=== PATIENT | female | born 2005 | race Caucasian/White ===

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

== ENCOUNTER 2023-11-14 19:53 | Inpatient (IN) | payer BC, SELFPAY ==
[2021-08-18 14:50] VITALS: BP 129/82; BMI 37.8
[2023-11-14 19:55] VITALS: BP 150/92; PULSE 81; RESP 18; TEMP 37.1; O2SAT 98; BMI 36.6
--- NOTE | 2023-11-14 20:11 | W.ED.PSYCHS ---
HPI - Psych General: Chief Complaint: Psychiatric Symptoms Stated Complaint: possible seizure Time Seen by Provider: 11/14/23 19:56 Source: patient Mode of arrival: ambulatory Limitations: no limitations History of Present Illness: 18-year-old female with a history of PTSD along with depression patient brought in by friends annalee because she been making suicidal threats. She tells me she feels like she is in a dissociative state and does not feel well she states she has had thoughts of suicide with plans of killing herself by overdosing on pills she has had psych admissions in the past. Denies any worse improved factors. Associated symptoms: Reports depression and suicidal ideation Review of Systems Const: Denies: fever(s), chills, body aches or change in appetite ENMT: Denies: throat pain or dental pain Card: Denies: chest pain Resp: Denies: dyspnea GI: Denies: abdominal pain, nausea, vomiting or diarrhea Musc: Denies: neck pain or back pain Skin/Breast: Denies: rash Neuro: Denies: headache(s) Psych: Reports: depression and suicidal ideation [facility] PFSH: Family History (Updated 08/13/21 @ 15:50 by Mariza Tipton RN) Other CAD (coronary artery disease) Diabetes Hypertension Lung disease Stroke Social History Smoking and tobacco/nicotine status: never used tobacco/nicotine Second hand smoke exposure: Yes Alcohol intake: never Substance/Drug Use: never Adopted: No Highest education level completed: 11th Grade Education level details: currently in 12th grade Pets and animals: Yes Pets & animals: cat(s) and dog(s) Sexually active: Yes Are you practicing safe sex: Yes Do you think of yourself as: Bisexual Current gender identity: Genderqueer- Neither Male or Female Katarina/Mosque: Carter Special katarina needs: No Agree to transfusion: Yes Female Reproductive History: Date of last menstrual period: 11/14/23 Physical Exam Const: COMMON NORMALS: no acute distress, patient oriented x3 and healthy appearing HENMT: COMMON NORMALS: normocephalic and atraumatic HEAD & SCALP: normocephalic and atraumatic Neck/C-Spine: COMMON NORMALS: full ROM and supple Chest: COMMONS NORMALS: normal inspection of the chest Resp: COMMON NORMALS: normal respiratory effort Cardio: COMMON NORMALS: regular rate, regular rhythm and No murmurs present (Cardio) RATE: regular rate RHYTHM: regular rhythm Extremity: COMMON NORMALS: normal to inspection and full ROM Neuro: COMMON NORMALS: patient oriented x3, moves all extremities and no focal motor deficits Psych: COMMON NORMALS: mental status grossly normal, Normal thought process present and cooperative THOUGHT PROCESS: Normal thought process present THOUGHT CONTENT: Yes Suicidality present Skin: COMMON NORMALS: no rashes or lesions noted and no wounds GENERAL SKIN EXAM: no rashes or lesions noted Course Vital Signs: Vital signs: Vital Signs Temperature 98.7 F 11/14/23 19:55 Pulse Rate 81 11/14/23 19:55 Respiratory Rate 18 11/14/23 19:55 Blood Pressure 150/92 11/14/23 19:55 Pulse Oximetry 98 11/14/23 19:55 Oxygen Delivery Me thod Room Air 11/14/23 19:55 MDM - Psych Medical Decision Making Patient presents here with suicidal ideation patient is placed under 96-hour hold and will admit to the psychiatric unit. Medical Records I reviewed the patient's medical records. Lab Data I reviewed the patient's lab results. 11/14/23 20:12 11/14/23 20:12 Laboratory Results WBC 15.76 10^3/uL (4.5-13.0) H 11/14/23 20:12 RBC 4.56 10^6/uL (3.85-5.65) 11/14/23 20:12 Hgb 13.30 g/dL (12.4-14.8) 11/14/23 20:12 Hct 39.1 % (36-47) 11/14/23 20:12 MCV 85.7 fl (85-98) 11/14/23 20:12 MCH 29.2 pg (27-33) 11/14/23 20:12 MCHC 34.0 g/dL (30-55) 11/14/23 20:12 RDW 12.6 % (12.1-15.1) 11/14/23 20:12 Plt Count 411 10^3/cmm (157-399) H 11/14/23 20:12 MPV 9.2 fL (7.4-10.4) 11/14/23 20:12 Neut % (Auto) 72.8 % 11/14/23 20:12 Lymph % (Auto) 18.8 % 11/14/23 20:12 Levy % (Auto) 6.9 % 11/14/23 20:12 Eos % (Auto) 0.3 % 11/14/23 20:12 Baso % (Auto) 0.6 % 11/14/23 20:12 Neut # (Auto) 11.47 10^3/uL (1.8-8.0) H 11/14/23 20:12 Lymph # (Auto) 3.0 10^3/uL (1.5-6.5) 11/14/23 20:12 Levy # (Auto) 1.1 10^3/uL (0.2-0.9) H 11/14/23 20:12 Eos # (Auto) 0.1 10^3/uL (0.0-0.8) 11/14/23 20:12 Baso # (Auto) 0.1 10^3/uL (0.0-0.1) 11/14/23 20:12 Nucleated RBC % (auto) 0 % 11/14/23 20:12 Nucleated RBCs # 0.0 /100WBC 11/14/23 20:12 Sodium 137 mmol/L (136-145) 11/14/23 20:12 Chloride 103 mmol/L (98-107) 11/14/23 20:12 Carbon Dioxide 20 mmol/L (22-29) L 11/14/23 20:12 BUN 8 mg/dL (6-20) 11/14/23 20:12 Creatinine 0.7 mg/dL (0.5-0.9) 11/14/23 20:12 GFR Calculation 106.7 mL/min (90-130) 11/14/23 20:12 Glucose 97 mg/dL (65-115) 11/14/23 20:12 Calculated Osmolality 282 mOsm/kg (285-295) L 11/14/23 20:12 Lactic Acid 1.7 mmol/L (0.5-2.2) 11/14/23 20:12 Calcium 9.2 mg/dL (8.5-10.5) 11/14/23 20:12 Total Bilirubin 0.5 mg/dL (0.15-1.2) 11/14/23 20:12 AST 20 U/L (0-32) 11/14/23 20:12 ALT 16 U/L (0-33) 11/14/23 20:12 Alkaline Phosphatase 70 U/L (35-105) 11/14/23 20:12 Total Protein 8.1 g/dL (6.6-8.7) 11/14/23 20:12 Albumin 4.7 g/dL (3.5-5.2) 11/14/23 20:12 Globulin 3.4 g/dL (1.3-4.6) 11/14/23 20:12 HCG, Qual Negative (Negative) 11/14/23 20:45 Salicylates 0.6 mg/dL (3-10) L 11/14/23 20:12 Urine Opiates Screen Negative ng/mL (Negative) 11/14/23 20:45 Acetaminophen < 5.0 ug/mL (10-30) L 11/14/23 20:12 Ur Barbiturates Screen Negative ng/mL (Negative) 11/14/23 20:45 Ur Phencyclidine Scrn Negative ng/mL (Negative) 11/14/23 20:45 Ur Amphetamines Screen Negative ng/mL (Negative) 11/14/23 20:45 U Benzodiazepines Scrn Negative ng/mL (Negative) 11/14/23 20:45 Urine Cocaine Screen Negative ng/mL (Negative) 11/14/23 20:45 U Marijuana (THC) Screen Positive ng/mL (Negative) H 11/14/23 20:45 Ethyl Alcohol < 10 mg/dL (0-10) 11/14/23 20:12 No radiology studies performed this visit Discharge Plan Discharge Patient Disposition: Admitted As Inpatient Clinical Impression: Suicidal ideation Condition: Stable Prescriptions: No Action cholecalciferol (vitamin D3) 25 mcg (1,000 unit) tablet,chewable 25 mcg PO DAILY multivitamin Tablet 1 tab PO QAM bupropion HCl 150 mg tablet extended release 24 hr 150 mg PO QAM Qty: 30 2RF hydroxyzine HCl 50 mg tablet 50 mg PO .HS PRN (Reason: anxiety or sleep) Qty: 30 2RF lithium carbonate 450 mg tablet extended release 450 mg PO BID Qty: 60 2RF prazosin 5 mg capsule 5 mg PO .HS Qty: 30 2RF sertraline 50 mg tablet 50 mg PO DAILY Qty: 30 2RF trazodone 50 mg tablet 100 mg PO .HS PRN (Reason: insomnia) Qty: 60 2RF Rx Instructions: 1-2 tabs at night as needed for sleep. Depo-Provera Contraceptive Coding Level of Care Code ED Loom Operator Apprentice for Heike Mckinley
[2023-11-14] MEDS: LORazepam 2 mg/mL INJ 10 mL MDV IM (20:20)
[2023-11-14 20:21] LABS: Basophils # 0.1 10^3/uL (0.0-0.1); Basophils % 0.6 %; Eosinophils # 0.1 10^3/uL (0.0-0.8); Eosinophils % 0.3 %; Hematocrit 39.1 % (36-47); Lymphocytes % 18.8 %; Mean Corpuscular Hemoglobin 29.2 pg (27-33); Mean Corpuscular Volume 85.7 fl (85-98); Mean Platelet Volume 9.2 fL (7.4-10.4); Monocytes # 1.1 10^3/uL (0.2-0.9); Monocytes % 6.9 %; Neutrophils # 11.47 10^3/uL (1.8-8.0); Neutrophils % 72.8 %; Nucleated Red Blood Cells % 0 %; Platelet Count 411 10^3/cmm (157-399); Red Blood Count 4.56 10^6/uL (3.85-5.65); Red Cell Distribution Width 12.6 % (12.1-15.1); White Blood Count 15.76 10^3/uL (4.5-13.0)
[2023-11-14 20:48] LABS: Lactic Sepsis W/Reflex 1.7 mmol/L (0.5-2.2)
[2023-11-14 20:49] LABS: Alanine Aminotransferase 16 U/L (0-33); Albumin Level 4.7 g/dL (3.5-5.2); Alkaline Phosphatase 70 U/L (35-105); Aspartate Amino Transferase 20 U/L (0-32); Salicylate 0.6 mg/dL (3-10)
--- NOTE | 2023-11-14 21:00 | PC.NURSE ---
96 Pt served with copy of 96 Hour Hold by this RN and security. Pt A&O, asking questions regarding the phone in [facility] and how can she get numbers out of her cell phone to make calls when she gets to [facility].
[2023-11-14 21:04] LABS: Amphetamines Screen Urine Negative (Negative); Barbiturates Screen Urine Negative (Negative); Benzodiazepines Screen Urine Negative (Negative); Cocaine Screen Urine Negative (Negative); Opiate Screen Urine Negative (Negative); PCP Screen Urine Negative (Negative); THC Screen Urine Positive (Negative)
[2023-11-14 21:14] LABS: Acetaminophen < 5.0 ug/mL (10-30)
[2023-11-14 21:32] LABS: Alcohol Level < 10 mg/dL (0-10); Blood Urea Nitrogen 8 mg/dL (6-20); Calcium 9.2 mg/dL (8.5-10.5); Carbon Dioxide 20 mmol/L (22-29); Creatinine Clr Calc Pharmacy 134.2741; Globulin 3.4 g/dL (1.3-4.6); Glomerular Filtration Rate 106.7 mL/min (90-130); Glucose 97 mg/dL (65-115); Total Bilirubin 0.5 mg/dL (0.15-1.2); Total Protein 8.1 g/dL (6.6-8.7)
[2023-11-14 21:32] LABS: HCG Qualitative Urine. Negative (Negative)
[2023-11-14 23:01] LABS: Anion Gap 19.4 (5-19); Chloride 104 mmol/L (98-107); Osmolality Calculated 288 mOsm/kg (285-295); Potassium 3.4 mmol/L (3.5-5.1); Sodium 140 mmol/L (136-145)
[2023-11-14 23:09] LABS: Add Urine Culture? No; Amorphous Sediment Urine 3+ /hpf; Bacteria Urine 1+ /hpf; Bilirubin Urine Neg (Negative); Blood Urine 2+ (Negative); Glucose Urine UA Norm (Normal); Ketones Urine 2+ (Negative); Leukocyte Esterase Urine Negative (Negative); Nitrate Urine Negative (Negative); Protein Urine 1+ (Negative); RBC Urine 0-4 /hpf (0-2); Squamous Epithelial Cell Urine 0-4 /hpf (0-5); Urine Appearance Cloudy (CLEAR); Urine Color Yellow (Yellow); Urobilinogen Urine Neg (Negative); WBC Urine 0-4 /hpf (0-5); pH Urine 5 (5-7)
[2023-11-14 23:18] VITALS: BP 141/87; PULSE 118; RESP 18; TEMP 36.3; O2SAT 98
[2023-11-14 23:41] LABS: Prolactin 18.42 ng/mL (4.8-23.3)
[2023-11-14] MEDS: trazodone 50 mg Tablet PO (23:59)
--- NOTE | 2023-11-15 00:34 | PC.NURSE ---
Admission Note Pt arrived to NPU by wheelchair at 2319. Pt stated that she is here because a friend of hers recently and she has been feeling suicidal. She states that she hasn't been eating or sleeping recently and she thinks that's why she passed out earlier today. Pt told this nurse that she is currently having thoughts of harming herself and has a plan to strangle herself with her bed sheets. Pt also stated that she has been having hallucinations and they are telling her that she is worthless and that she should drown herself. Pt denies HI upon admission. Pt was dressed into NPU scrubs. Phycisian was contacted for 1:1 orders due to pts access to SI plan. Verbal orders were given for a one-to-one. Pt is now observed resting in bed quietly with eyes closed. Sitter at bedside. Behavioral monitoring continues.
[2023-11-15 06:00] VITALS: BP 131/82; PULSE 90; RESP 16; O2SAT 99
[2023-11-15] MEDS: blistex lip oint 7 gm Tube 1 APPLIC TOPICAL (08:32)
[2023-11-15] MEDS: docusate sodium 100 mg Capsule PO (09:20)
[2023-11-15] MEDS: hyDROXYzine 25 mg Capsule 50 MG PO (09:20)
[2023-11-15] MEDS: flu vacc pf 2023-24 (6 mos+) 60 MCG IM (09:20)
--- NOTE | 2023-11-15 09:46 | PC.NURSE ---
pATIENT REPORTED TO THIS NURSE THAT SHE HAS A REVOLVING DOOR OF DIFFERENT METHODS I WOULD USE TO KILL MYSELF. I THINK ABOUT THEM A LOT. I DO WANT TO LIVE BUT TIRED OF FEELING MENTAL PAIN ALL OF THE TIME. PATIENT RATES DEPRESSION 05/08 AND ANXIETY 03/07. PATIENT STATES THAT HER DEPRESSION AND ANXIETY COMES AND GOES. PATIENT ENDORSES AVH. PATIENT SEES SHADOWS WALKING BY AND SOMETIMES IT SOUNDS LIKE SOMONE IS WHISPERING BEHIND HER EAR. PATIENT STATES THAT HER EX-BOYFRIEND RECENTLY COMMITED SUICIDE AND THIS IS HAVING A NEGATIVE EFFECT ON HER MENTAL HEALTH.
[2023-11-15 14:00] VITALS: BP 115/67; PULSE 58; RESP 16; TEMP 36.6; O2SAT 97
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
[2023-11-15 19:52] VITALS: BP 114/78; PULSE 87; RESP 16; TEMP 36.9; O2SAT 94
[2023-11-15] MEDS: quetiapine 25 mg Tablet 50 MG PO (20:04)
[2023-11-16 06:00] VITALS: BP 131/74; PULSE 63; RESP 15; TEMP 36.6; O2SAT 98
[2023-11-16] MEDS: sertraline 50 mg Tablet 25 MG PO (08:22)
--- NOTE | 2023-11-16 09:25 | PC.NURSE ---
IN BED RESTING AROUSES TO VOICE. PT ONE ON ONE OBSERVATION DUE TO TELLING ADMITING NURSE SHE WAS SUICIDAL WITH A PLAN. PT CURRENTLY DENIES SI/HI AND AVH AT THIS TIME. PT IS NOTED TO HAVE A FLAT AFFECT AND LIMITED EYE CONTACT. PTS ANSWERS ARE DELAYED AT TIMES. RATES ANXIETY 6/10 BUT STATES SHE DOES NOT NEED ANY PRNS RIGHT NOW. RATES DEPRESSION 7/10. ANTIDEPRESSANT WAS STARTED THIS AM AT 25 MG, PT COMPLIANT WITH MEDICATIONS. ALL QUESTIONS WERE ANSWERED AND SUPPORT WAS VOICED.
[2023-11-16] MEDS: OLANZapine 5 mg ODT PO (13:39)
[2023-11-16 14:00] VITALS: BP 122/83; PULSE 89; RESP 20; TEMP 36.6; O2SAT 96
--- NOTE | 2023-11-16 15:33 | P.NPUPN_ITS ---
Subjective NPU 2 Subjective: 18-year-old white female with borderline personality disorder, major depressive disorder and PTSD admitted with active suicidal ideation with a plan to hang herself along with a history of chronic self-injurious behavior. Patient had reported having less frequent thoughts of hanging herself but still reported that she felt uncertain. She had reported having frequent thoughts of cutting herself. She had reported no previous history of any intensive skills training regarding chronic self-injurious behavior with no history of reported psychotherapy particularly focusing on DBT skills. Patient had reported continued low energy. She had reported some feelings of abandonment and reported having limited supports in [place]. She had reported that her home situation at [place] had been volatile and had led her to isolate herself more. She reported continued visual images about seeing her friend hanged in the [place]. She had reported difficulties with sleep continuity disruption and reported having frequent nightmares.She had reported improved sleep but still reported feeling tired and unmotivated when awakening. Mental Status Exam 2 MSE Comments: Patient is an overweight white female with purple hair with fair eye contact and normal gait with no evidence of any abnormal involuntary motor movements tics or tremors. There was clear superficial scars on her left forearm. Her speech was normal in regards to rate rhythm and prosody. Her mood was described as okay. Her affect was restricted in range and mood congruent. She had endorsed active suicidal ideation with a plan to hang herself with her blankets although reporting less frequent thoughts. She denied any homicidal ideation. She did not appear to be responding internal stimuli. There was no clear evidence of delusional thinking. She remained hypervigilant. Her attention span appeared fair. Her recent and remote memory were grossly intact. She was alert and oriented to person place time and situation. Her insight is poor. Her judgment is poor. Her impulse control appeared poor. Vitals/I&O/Wt Last Vital Signs Temp 98 F 11/16/23 14:00 Pulse 89 11/16/23 14:00 Resp 20 H 11/16/23 14:00 BP 122/83 11/16/23 14:00 Pulse Ox 96 11/16/23 14:00 O2 Del Method Room Air 11/16/23 06:00 Weight last 48 hrs Weight 90.718 kg Data NPU 11/14/23 20:12 11/14/23 20:12 A&P Assessment and plan (1) Major depressive disorder, recurrent severe without psychotic features: (2) Post-traumatic stress disorder, chronic: (3) Suicidal ideation: (4) Borderline personality disorder: Plan 18-year-old white female with a history of borderline personality disorder, PTSD and major depressive disorder endorsing suicidal ideation with a plan after of ex boyfriend. The patient had reported desire to receive treatment at this time with no prior history of intensive psychotherapy but previous trials on antidepressants. ?1. Encourage individual, group and milieu therapy. ?2.Recommend sober living treatment at the highest level of care to which the patient is willing to commit. 3.Continue 1-1 with active suicidal ideation. 4. Continue zoloft 25mg daily and increase seroquel 100mg at night to target PTSD related symptoms. Involuntary Hold Information 2 96 Hour Hold: 96 Hour Involuntary Admission: Yes 96 Hour Hold Ending Date: 11/18/23 96 Hour Hold Ending Time: 20:15 Attestations NPU 2 Medical Necessity Statement*: Inpatient hospitalization is medically necessary and deemed to ?be ?the clinically appropriate intervention ?at this time.? We will monitor/initiate medications and make changes as indicated.? The patient?s likely length of stay 5-7 days. Coding Level of Care Code Acute Code for [facility] Fwd Diagnoses Major depressive disorder, recurrent severe without psychotic features F33.2 Post-traumatic stress disorder, chronic F43.12 Suicidal ideation R45.851 Borderline personality disorder F60.3
--- NOTE | 2023-11-16 18:01 | PC.NURSE ---
PT RECEIVED PRN ZYDIS 5 MG THIS AFTERNOON FOR COMPLAINTS OF INCREASED ANXIETY. PT WAS OBSERVED TO BE SHAKING, CRYING AND UPSET ON THE PHONE. MEDICATION IS DEEMED EFFECTIVE, PT HAD NO FURTHER COMPLAINTS OF ANXIETY THIS SHIFT. PT HAS BEEN RESTING IN ROOM WITH NO DISTRESS NOTED. SITTER REMAINS AT BEDSIDE. SUPPORT VOICED.
[2023-11-16] MEDS: quetiapine 100 mg Tablet PO (19:53)
[2023-11-16 20:02] VITALS: BP 118/80; PULSE 81; RESP 16; TEMP 36.7; O2SAT 97
--- NOTE | 2023-11-16 20:24 | PC.NURSE ---
Pt sitting in dayroom w/ sitter. Pt denies SI at the moment but agrees to tell staff if it changes. Pt also denies HI/AVH but endorses anxiety/depression. one to one sitter continued / no distress noted / pt current needs are met at this time.
[2023-11-16] MEDS: trazodone 50 mg Tablet PO (21:44)
--- NOTE | 2023-11-16 22:04 | PC.NURSE ---
Pt given PRN 50mg Trazodone for sleep. No distress noted & current needs are met.
[2023-11-17 06:00] VITALS: BP 108/66; PULSE 64; RESP 15; TEMP 36.7; O2SAT 98
[2023-11-17] MEDS: sertraline 50 mg Tablet 25 MG PO (09:02)
--- NOTE | 2023-11-17 13:52 | W.PM.NPUPNS ---
Subjective NPU Subjective: 18-year-old white female with borderline personality disorder, major depressive disorder and PTSD admitted with active suicidal ideation with a plan to hang herself along with a history of chronic self-injurious behavior. Patient had endorsed a history of dissociative episodes. She had reported that she had been having problems with concentration. She had continued to report feeling depressed but stated that she continued to struggle with having recurring thoughts and images of her now friend. Patient had reported excessive worry regarding her friends who had witnessed the hanging or had been present to some find the body of her friend. Patient had isolated herself on the milieu but stated that she was able to attend groups. She had expressed interest in receiving DBT services as patient had been present with some brief information regarding its methods for treating chronic self-injurious behavior. He did continue to report nightmares and reported struggles with sleep although she stated that she had not remember having a nightmare last night. She had reported chronic problems with controlling her urge to cut. Mental Status Exam MSE Comments: Patient is an overweight white female with purple hair with fair eye contact and normal gait with no evidence of any abnormal involuntary motor movements tics or tremors. She remained in significant distress. There was clear superficial scars on her left forearm. Her speech was normal in regards to rate rhythm and prosody. Her mood was described as depressed. Her affect was flat. She had endorsed fleeting suicidal thoughts with no active plan to hang self. She denied any homicidal ideation. She did not appear to be responding internal stimuli. There was no clear evidence of delusional thinking. She remained hypervigilant. Her attention span appeared fair. Her recent and remote memory were grossly intact. She was alert and oriented to person place time and situation. Her insight is poor. Her judgment is poor. Her impulse control appeared poor. Vitals/I&O/Wt Last Vital Signs Temp 98.0 F 11/17/23 06:00 Pulse 64 11/17/23 06:00 Resp 15 11/17/23 06:00 BP 108/66 11/17/23 06:00 Pulse Ox 98 11/17/23 06:00 O2 Del Method Room Air 11/17/23 06:00 Data NPU 11/14/23 20:12 11/14/23 20:12 A&P Assessment and plan (1) Major depressive disorder, recurrent severe without psychotic features: (2) Post-traumatic stress disorder, chronic: (3) Suicidal ideation: (4) Borderline personality disorder: Plan 18-year-old white female with a history of borderline personality disorder, PTSD and major depressive disorder endorsing suicidal ideation with a plan after of ex boyfriend. The patient had reported desire to receive treatment at this time with no prior history of intensive psychotherapy but previous trials on antidepressants. ?1. Encourage individual, group and milieu therapy. ?2.Recommend sober living treatment at the highest level of care to which the patient is willing to commit. 3. Remove 1-[address] patient on TO-15. 4. Increase zoloft to 50mg daily to target depression and increase seroquel 150mg at night to target PTSD related symptoms. 5. Referral for DBT therapy. Involuntary Hold Information 96 Hour Hold: 96 Hour Involuntary Admission: Yes 96 Hour Hold Ending Date: 11/18/23 96 Hour Hold Ending Time: 20:15 Attestations NPU Medical Necessity Statement*: Inpatient hospitalization is medically necessary and deemed to ?be ?the clinically appropriate intervention ?at this time.? We will monitor/initiate medications and make changes as indicated.? The patient?s likely length of stay 5-7 days. Coding Level of Care Code Acute Code for [facility] Fwd Diagnoses Major depressive disorder, recurrent severe without psychotic features F33.2 Post-traumatic stress disorder, chronic F43.12 Suicidal ideation R45.851 Borderline personality disorder F60.3
[2023-11-17 14:00] VITALS: BP 131/89; PULSE 76; RESP 16; TEMP 36.6; O2SAT 99
[2023-11-17 19:58] VITALS: BP 113/79; PULSE 72; RESP 17; TEMP 36.7; O2SAT 98
[2023-11-17] MEDS: quetiapine 100 mg Tablet 150 MG PO (20:03)
[2023-11-17] MEDS: hyDROXYzine 25 mg Capsule 50 MG PO (20:03)
--- NOTE | 2023-11-17 20:56 | PC.NURSE ---
Pt currently denies SI/HI/AVH but endorses anxiety and depression. Pt stated Im doing okay just going through an emotional rollercoaster . Pt given PRN Vistaril for anxiety. All current pt needs are met & no distress noted.
[2023-11-18 06:00] VITALS: BP 103/63; PULSE 74; RESP 15; TEMP 36.5; O2SAT 96
[2023-11-18] MEDS: sertraline 50 mg Tablet PO (08:07)
--- NOTE | 2023-11-18 13:09 | P.NPUPN_ITS ---
Subjective NPU 2 Subjective: Patient presented today reporting that she was feeling okay. She reported identifying some positive thoughts to focus upon. She reports that her grief surrounding her ex-boyfriend appears on the surface because it is like she is losing him all over again and she still really cared about him. She reports that her plan is to stay in the area and stay with a friend in [place]. We discussed the medications and she reports they are currently helping her feel better she believes and she denied any side effects from the medication. We discussed continuing to monitor and titrate the medication as indicated. Mental Status Exam 2 MSE Comments: Patient is an obese white female with purple hair in hospital scrubs with adequate grooming and eye contact. No abnormal movements except for mild psychomotor retardation. Cooperative with exam in mild to moderate distress. Speech was decreased rate and volume. There was clear superficial scars on her left forearm. Her mood was described as depressed, but improving. Her affect was congruent and flat. She denied current suicidal thoughts with no active plan to hang self. She denied any homicidal ideation. She did not appear to be responding internal stimuli. There was no clear evidence of delusional thinking. She remained hypervigilant. Her attention span appeared fair. Her recent and remote memory were grossly intact. She was alert and oriented to person place time and situation. Her insight and judgment appeared limited. Her impulse control appeared poor. Vitals/I&O/Wt Last Vital Signs Temp 97.7 F 11/18/23 06:00 Pulse 74 11/18/23 06:00 Resp 15 11/18/23 06:00 BP 103/63 11/18/23 06:00 Pulse Ox 96 11/18/23 06:00 O2 Del Method Room Air 11/18/23 06:00 Data NPU 11/14/23 20:12 11/14/23 20:12 A&P Assessment and plan (1) Major depressive disorder, recurrent severe without psychotic features: (2) Post-traumatic stress disorder, chronic: (3) Suicidal ideation: (4) Borderline personality disorder: Plan 18-year-old white female with a history of borderline personality disorder, PTSD and major depressive disorder endorsing suicidal ideation with a plan after of ex boyfriend. The patient had reported desire to receive treatment at this time with no prior history of intensive psychotherapy but previous trials on antidepressants. ?1. Encourage individual, group and milieu therapy. ?2.Recommend sober living treatment at the highest level of care to which the patient is willing to commit. 3. Remove 1-[address] patient on TO-15. 4. Increase zoloft to 50mg daily to target depression and increase seroquel 150mg at night to target PTSD related symptoms. 5. Referral for DBT therapy. 6. Filed 21-day paperwork today but unclear whether will need to follow through with hearing if appropriate improvement seen. Involuntary Hold Information 2 96 Hour Hold: 96 Hour Involuntary Admission: Yes 96 Hour Hold Ending Date: 11/18/23 96 Hour Hold Ending Time: 20:15 Attestations NPU 2 Medical Necessity Statement*: Inpatient hospitalization is medically necessary and deemed to ?be ?the clinically appropriate intervention ?at this time.? We will monitor/initiate medications and make changes as indicated.? The patient?s likely length of stay 3-6 days. Coding Level of Care Code Acute Code for [facility] Fwd Diagnoses Major depressive disorder, recurrent severe without psychotic features F33.2 Post-traumatic stress disorder, chronic F43.12 Suicidal ideation R45.851 Borderline personality disorder F60.3
[2023-11-18 14:00] VITALS: BP 103/71; PULSE 73; RESP 16; TEMP 36.7; O2SAT 97
--- NOTE | 2023-11-18 19:50 | PC.NURSE ---
Pt currently denies SI/HI/AVH on assessment. Pt states she had a better day today and had no requests or questions at this time. All pt current needs are met & no distress noted.
[2023-11-18 20:05] VITALS: BP 99/65; PULSE 92; RESP 17; TEMP 36.8; O2SAT 97
[2023-11-18] MEDS: hyDROXYzine 25 mg Capsule 50 MG PO (20:13)
[2023-11-18] MEDS: quetiapine 100 mg Tablet 150 MG PO (20:13)
--- NOTE | 2023-11-18 20:15 | PC.NURSE ---
Pt came up to nurses station w/co anxiety. PRN vistaril for anxiety was given to pt. All current needs met at this time.
[2023-11-19 06:00] VITALS: BP 120/84; PULSE 104; RESP 16; O2SAT 99
[2023-11-19] MEDS: sertraline 50 mg Tablet PO (08:34)
--- NOTE | 2023-11-19 11:32 | W.PM.NPUPNS ---
Subjective NPU Subjective: Patient presented today reporting that she is starting to feel more optimistic about her situation. She reports that the medications are proving to be helpful and that she feels her symptoms starting to chevy. She continued to endorse the same plan for discharge and we continue to discuss the possibility of discharge by Tuesday. Mental Status Exam MSE Comments: Patient is an obese white female with purple hair in hospital scrubs with adequate grooming and eye contact. No abnormal movements except for mild psychomotor retardation. Cooperative with exam in mild to moderate distress. Speech was decreased rate and volume. There was clear superficial scars on her left forearm. Her mood was described as a little better. Her affect was congruent and less flat. She denied current suicidal thoughts with no active plan to hang self. She denied any homicidal ideation. She did not appear to be responding internal stimuli. There was no clear evidence of delusional thinking. And she was appearing less guarded. Her attention span appeared fair. Her recent and remote memory were grossly intact. She was alert and oriented to person place time and situation. Her insight and judgment appeared limited. Her impulse control appeared poor. Vitals/I&O/Wt Last Vital Signs Temp 98.3 F 11/18/23 20:05 Pulse 104 H 11/19/23 06:00 Resp 16 11/19/23 06:00 BP 120/84 11/19/23 06:00 Pulse Ox 99 11/19/23 06:00 O2 Del Method Room Air 11/18/23 20:05 Data NPU 11/14/23 20:12 11/14/23 20:12 A&P Assessment and plan (1) Major depressive disorder, recurrent severe without psychotic features: (2) Post-traumatic stress disorder, chronic: (3) Suicidal ideation: (4) Borderline personality disorder: Plan 18-year-old white female with a history of borderline personality disorder, PTSD and major depressive disorder endorsing suicidal ideation with a plan after of ex boyfriend. The patient had reported desire to receive treatment at this time with no prior history of intensive psychotherapy but previous trials on antidepressants. ?1. Encourage individual, group and milieu therapy. ?2.Recommend sober living treatment at the highest level of care to which the patient is willing to commit. 3. Remove 1-[address] patient on TO-15. 4. Increase zoloft to 50mg daily to target depression and increase seroquel 150mg at night to target PTSD related symptoms. 5. Referral for DBT therapy. 6. Filed 21-day paperwork today but unclear whether will need to follow through with hearing if appropriate improvement seen. Involuntary Hold Information 96 Hour Hold: 96 Hour Involuntary Admission: Yes 96 Hour Hold Ending Date: 11/18/23 96 Hour Hold Ending Time: 20:15 Attestations NPU Medical Necessity Statement*: Inpatient hospitalization is medically necessary and deemed to ?be ?the clinically appropriate intervention ?at this time.? We will monitor/initiate medications and make changes as indicated.? The patient?s likely length of stay 2-4 days. Coding Level of Care Code Acute Code for [facility] Fwd Diagnoses Major depressive disorder, recurrent severe without psychotic features F33.2 Post-traumatic stress disorder, chronic F43.12 Suicidal ideation R45.851 Borderline personality disorder F60.3
[2023-11-19 14:00] VITALS: BP 109/72; PULSE 75; RESP 16; TEMP 36.6; O2SAT 95
[2023-11-19 19:44] VITALS: BP 115/82; PULSE 103; RESP 18; TEMP 36.6; O2SAT 97
[2023-11-19] MEDS: quetiapine 100 mg Tablet 150 MG PO (20:16)
[2023-11-19] MEDS: hyDROXYzine 25 mg Capsule 50 MG PO (20:16)
--- NOTE | 2023-11-19 21:35 | PC.NURSE ---
on assessment pt endorsed anxiety / depression & SI. Pt was asked if she had a plan which she replied not at the moment . Pt did agree that if she developed a plan she would inform staff. Pt was given PRN Vistaril for anxiety and is currently laying in bed. Will continue to watch pt closely & warehouse inventory clerk notified.
[2023-11-20 06:00] VITALS: BP 110/70; PULSE 78; RESP 16; TEMP 36.5; O2SAT 98
[2023-11-20] MEDS: sertraline 50 mg Tablet PO (08:33)
--- NOTE | 2023-11-20 11:34 | P.NPUPN_ITS ---
Subjective NPU 2 Subjective: Patient presented today reporting that she is feeling better. Staff reported less isolation that she was seen outside of her room for prolonged periods of time by this underwriter mortgage loan for the first time in her stay. She reports the medications have been effective and she denied any side effects to the medication. We discussed the likely discharge in the next 48 hours. Mental Status Exam 2 MSE Comments: Patient is an obese white female with purple hair in hospital scrubs with adequate grooming and eye contact. No abnormal movements except for mild psychomotor retardation. Cooperative with exam in mild to moderate distress. Speech was decreased rate and volume. There was clear superficial scars on her left forearm. Her mood was described as a little better. Her affect was congruent and less flat. She denied current suicidal thoughts with no active plan to hang self. She denied any homicidal ideation. She did not appear to be responding internal stimuli. There was no clear evidence of delusional thinking. And she was appearing less guarded. Her attention span appeared fair. Her recent and remote memory were grossly intact. She was alert and oriented to person place time and situation. Her insight and judgment appeared limited. Her impulse control appeared poor. Vitals/I&O/Wt Last Vital Signs Temp 97.7 F 11/20/23 06:00 Pulse 78 11/20/23 06:00 Resp 16 11/20/23 06:00 BP 110/70 11/20/23 06:00 Pulse Ox 98 11/20/23 06:00 O2 Del Method Room Air 11/19/23 14:00 Weight last 48 hrs Weight 86.001 kg Data NPU 11/14/23 20:12 11/14/23 20:12 A&P Assessment and plan (1) Major depressive disorder, recurrent severe without psychotic features: (2) Post-traumatic stress disorder, chronic: (3) Suicidal ideation: (4) Borderline personality disorder: Plan 18-year-old white female with a history of borderline personality disorder, PTSD and major depressive disorder endorsing suicidal ideation with a plan after of ex boyfriend. The patient had reported desire to receive treatment at this time with no prior history of intensive psychotherapy but previous trials on antidepressants. ?1. Encourage individual, group and milieu therapy. ?2.Recommend sober living treatment at the highest level of care to which the patient is willing to commit. 3. Remove 1-[address] patient on TO-15. 4. Increase zoloft to 50mg daily to target depression and increase seroquel 150mg at night to target PTSD related symptoms. 5. Referral for DBT therapy. 6. Filed 21-day paperwork today but unclear whether will need to follow through with hearing if appropriate improvement seen. Involuntary Hold Information 2 96 Hour Hold: 96 Hour Involuntary Admission: Yes 96 Hour Hold Ending Date: 11/18/23 96 Hour Hold Ending Time: 20:15 Attestations NPU 2 Medical Necessity Statement*: Inpatient hospitalization is medically necessary and deemed to ?be ?the clinically appropriate intervention ?at this time.? We will monitor/initiate medications and make changes as indicated.? The patient?s likely length of stay 1-3 days. Coding Level of Care Code Acute Code for g Fwd Diagnoses Major depressive disorder, recurrent severe without psychotic features F33.2 Post-traumatic stress disorder, chronic F43.12 Suicidal ideation R45.851 Borderline personality disorder F60.3
[2023-11-20 14:00] VITALS: BP 125/84; PULSE 90; RESP 16; TEMP 36.8; O2SAT 97
[2023-11-20 20:10] VITALS: BP 116/84; PULSE 90; RESP 18; TEMP 36.9; O2SAT 96
[2023-11-20] MEDS: quetiapine 100 mg Tablet 150 MG PO (20:10)
[2023-11-21 06:00] VITALS: BP 114/81; PULSE 75; RESP 18; TEMP 36.6; O2SAT 99
[2023-11-21] MEDS: sertraline 50 mg Tablet PO ×2 (08:31→13:20)
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
[2023-11-21 13:16] VITALS: BP 114/81; PULSE 75; RESP 18; TEMP 36.6; O2SAT 99
== END 2023-11-21 15:36 | disposition home or self-care (01) | DRG 885 ==
LOC: ER 21:46 → NP 22:38
PROVIDERS: Internal Medicine; Admitting Provider Psychiatry & Neurology Psychiatry; Emergency Provider Emergency Medicine; Visit Provider Psychiatry & Neurology Psychiatry
DX: F33.2 Major depressive disorder, recurrent severe without psychotic features (principal); R45.851 Suicidal ideations; F43.12 Post-traumatic stress disorder, chronic; F60.3 Borderline personality disorder; Z63.4 Disappearance and death of family member; Z91.52 Personal history of nonsuicidal self-harm; Z91.51 Personal history of suicidal behavior; Z62.810 Personal history of physical and sexual abuse in childhood
CPT/HCPCS: 36415; 80053; 80306; 80307; 81001; 81025; 83605; 84146; 85025; 90471; 90686; 96372; 97150; 97165; 99285; J2060

== ENCOUNTER 2023-12-22 11:22 | Inpatient (IN) | payer BC, SELFPAY ==
[2023-11-25 09:59] VITALS: BP 129/82; BMI 37.8
[2023-12-22 11:34] VITALS: BP 114/77; PULSE 77; TEMP 37.2; O2SAT 97; BMI 35.8
--- NOTE | 2023-12-22 11:41 | ECG_ITS ---
[facility] Test Date: 2023-12-22 Pat Name: Day Suárez Department: Room: Gender: Female Manager Retail Sales: : 2005 Requested By: Nancy Cotter Order Number: [id number] Donny MD: Otilio Aldridge M.D. Measurements Intervals [place] Rate: 79 P: 45 WI: 159 QRS: 41 QRSD: 77 T: 14 QT: 336 QTc: 385 Interpretive Statements SINUS RHYTHM NONSPECIFIC T-WAVE ABNORMALITY Compared to ECG 05/16/2021 19:58:45 T-wave abnormality now present Electronically Signed On 12-22-2023 15:09:39 CDT by Otilio Aldridge M.D. [email or web address]
--- NOTE | 2023-12-22 12:00 | ED.C_ITS ---
HPI - Psych 2 General: Chief Complaint: Psychiatric Symptoms Stated Complaint: MHE Time Seen by Provider: 12/22/23 11:39 History of Present Illness: 18-year-old female with a history of dep ression who presents to the emergency room with worsening depression symptoms and suicidal thoughts. She says she had not had her meds in 2 days because she was staying with a friend who had a crisis. She says she has been thinking about either taking pills or hanging herself. She has not harmed herself thus far. She does have history of inpatient admissions for psychiatric problems and depression in the past. She says she is willing to be admitted. Review of Systems 2 Narrative: Constitutional symptoms: Negative except as documented in HPI. Skin symptoms: Negative except as documented in HPI. Eye symptoms: Negative except as documented in HPI. ENMT symptoms: Negative except as documented in HPI. Respiratory symptoms: Negative except as documented in HPI. Cardiovascular symptoms: Negative except as documented in HPI. Gastrointestinal symptoms: Negative except as documented in HPI. Genitourinary symptoms: Negative except as documented in HPI. Musculoskeletal symptoms: Negative except as documented in HPI. Neurologic symptoms: Negative except as documented in HPI. Psychiatric symptoms: Negative except as documented in HPI. Endocrine symptoms: Negative except as documented in HPI. PFSH ED 2 PFSH: Family History (Updated 08/13/21 @ 15:50 by Mariza Tipton RN) Other CAD (coronary artery disease) Diabetes Hypertension Lung disease Stroke Social History Smoking and tobacco/nicotine status: never used tobacco/nicotine Second hand smoke exposure: Yes Alcohol intake: never Substance/Drug Use: never Adopted: No Highest education level completed: 11th Grade Education level details: currently in 12th grade Pets and animals: Yes Pets & animals: cat(s) and dog(s) Sexually active: Yes Are you practicing safe sex: Yes Do you think of yourself as: Bisexual Current gender identity: Genderqueer- Neither Male or Female Katarina/Mormonism: Emma Special katarina needs: No Agree to transfusion: Yes Physical Exam 2 Narrative: EXAM NARRATIVE: General: Alert, no acute distress. Skin: Warm, dry. Head: Normocephalic, atraumatic. Neck: Supple, trachea midline. Eye: Extraocular movements are intact. Ears, nose, mouth and throat: mucosa moist. Cardiovascular: Regular, Normal peripheral perfusion. Respiratory: Lungs are clear to auscultation, respirations are non-labored, breath sounds are equal, Symmetrical chest wall expansion. Gastrointestinal: Soft, Nontender, Non distended, Normal bowel sounds. Musculoskeletal: Normal ROM, no deformity. Neurological: Alert and oriented, No focal neurological deficit observed. Psychiatric: Cooperative, patient appears depressed, tearful at times, she does express suicidal ideation Course 2 Vital Signs: Vital signs: Vital Signs Temperature 98.9 F 12/22/23 11:34 Pulse Rate 77 12/22/23 11:34 Blood Pressure 114/77 12/22/23 11:34 Pulse Oximetry 97 12/22/23 11:34 Oxygen Delivery Me thod Room Air 12/22/23 11:34 MDM - Psych Medical Decision Making Patient with reported depression and suicidal ideation. concerns for infection, alcohol intoxication, cardiac issues or other medical problems prior to psychiatric admission. - Workup: labwork, ekg ordered to evaluate the pathologies and to clear the patient medically prior to psychiatric admission EKG: Time 1210 rate 79 normal sinus rhythm, No ST-T changes, no ectopy, normal WI & QRS intervals, This was reviewed and interpreted by myself the ER physician At 1215 Lab Data 12/22/23 12:45 12/22/23 12:45 Laboratory Results WBC 10.82 10^3/uL (4.5-13.0) 12/22/23 12:45 RBC 4.89 10^6/uL (3.85-5.65) 12/22/23 12:45 Hgb 14.30 g/dL (12.4-14.8) 12/22/23 12:45 Hct 43.9 % (36-47) 12/22/23 12:45 MCV 89.8 fl (85-98) 12/22/23 12:45 MCH 29.2 pg (27-33) 12/22/23 12:45 MCHC 32.6 g/dL (30-55) 12/22/23 12:45 RDW 12.8 % (12.1-15.1) 12/22/23 12:45 Plt Count 364 10^3/cmm (157-399) 12/22/23 12:45 MPV 8.9 fL (7.4-10.4) 12/22/23 12:45 Neut % (Auto) 68.1 % 12/22/23 12:45 Lymph % (Auto) 21.4 % 12/22/23 12:45 [place] % (Auto) 7.6 % 12/22/23 12:45 Eos % (Auto) 1.7 % 12/22/23 12:45 Baso % (Auto) 0.6 % 12/22/23 12:45 Neut # (Auto) 7.38 10^3/uL (1.8-8.0) 12/22/23 12:45 Lymph # (Auto) 2.3 10^3/uL (1.5-6.5) 12/22/23 12:45 [place] # (Auto) 0.8 10^3/uL (0.2-0.9) 12/22/23 12:45 Eos # (Auto) 0.2 10^3/uL (0.0-0.8) 12/22/23 12:45 Baso # (Auto) 0.1 10^3/uL (0.0-0.1) 12/22/23 12:45 Nucleated RBC % (auto) 0 % 12/22/23 12:45 Nucleated RBCs # 0.0 /100WBC 12/22/23 12:45 Sodium 137 mmol/L (136-145) 12/22/23 12:45 Potassium 4.4 mmol/L (3.5-5.1) 12/22/23 12:45 Chloride 103 mmol/L (98-107) 12/22/23 12:45 Carbon Dioxide 25 mmol/L (22-29) 12/22/23 12:45 Anion Gap 13.4 (5-19) 12/22/23 12:45 BUN 12 mg/dL (6-20) 12/22/23 12:45 Creatinine 0.6 mg/dL (0.5-0.9) 12/22/23 12:45 GFR Calculation 127.5 mL/min (90-130) 12/22/23 12:45 Glucose 97 mg/dL (65-115) 12/22/23 12:45 Calculated Osmolality 284 mOsm/kg (285-295) L 12/22/23 12:45 Calcium 8.8 mg/dL (8.5-10.5) 12/22/23 12:45 Total Bilirubin 0.2 mg/dL (0.15-1.2) 12/22/23 12:45 AST 20 U/L (0-32) 12/22/23 12:45 ALT 28 U/L (0-33) 12/22/23 12:45 Alkaline Phosphatase 72 U/L (35-105) 12/22/23 12:45 Total Protein 7.3 g/dL (6.6-8.7) 12/22/23 12:45 Albumin 4.3 g/dL (3.5-5.2) 12/22/23 12:45 Globulin 3.0 g/dL (1.3-4.6) 12/22/23 12:45 TSH 0.60 uIU/mL (0.27-4.20) 12/22/23 12:45 HCG, Qual Negative (Negative) 12/22/23 12:13 Urine Color Yellow (Yellow) 12/22/23 12:13 Urine Appearance Clear (CLEAR) 12/22/23 12:13 Urine pH 6 (5-7) 12/22/23 12:13 Ur Specific [place] 1.020 (1.005-1.030) 12/22/23 12:13 Urine Protein Neg (Negative) 12/22/23 12:13 Urine Glucose (UA) Norm (Normal) 12/22/23 12:13 Urine Ketones Negative (Negative) 12/22/23 12:13 Urine Blood Neg (Negative) 12/22/23 12:13 Urine Nitrate Negative (Negative) 12/22/23 12:13 Urine Bilirubin Neg (Negative) 12/22/23 12:13 Urine Urobilinogen Norm mg/dL (Negative) 12/22/23 12:13 Ur Leukocyte Esterase Negative (Negative) 12/22/23 12:13 Urine RBC 0-4 /hpf (0-2) H 12/22/23 12:13 Urine WBC None /hpf (0-5) 12/22/23 12:13 Ur Squamous Epith Cells 0-4 /hpf (0-5) H 12/22/23 12:13 Amorphous Sediment Not Reportable 12/22/23 12:13 Urine Bacteria Trace /hpf (NONE) 12/22/23 12:13 Urine Mucus 1+ /hpf 12/22/23 12:13 Salicylates < 0.3 mg/dL (3-10) L 12/22/23 12:45 Urine Opiates Screen Negative ng/mL (Negative) 12/22/23 12:13 Acetaminophen < 5.0 ug/mL (10-30) L 12/22/23 12:45 Ur Barbiturates Screen Negative ng/mL (Negative) 12/22/23 12:13 Ur Phencyclidine Scrn Negative ng/mL (Negative) 12/22/23 12:13 Ur Amphetamines Screen Negative ng/mL (Negative) 12/22/23 12:13 U Benzodiazepines Scrn Negative ng/mL (Negative) 12/22/23 12:13 Urine Cocaine Screen Negative ng/mL (Negative) 12/22/23 12:13 U Marijuana (THC) Screen Positive ng/mL (Negative) H 12/22/23 12:13 Ethyl Alcohol < 10 mg/dL (0-10) 12/22/23 12:45 No radiology studies performed this visit Other Data Assessment and plan Suicidal ideation Depression - Medically cleared. - EKG shows no ischemic changes. - Blood alcohol level is negative, as well as salicylate and Tylenol. - Drug screen is negative - No signs of infection, urinalysis clear and white count is not elevated - No anemia. - BUN and creatinine are within normal limits. - Transfer to psychiatric facility for continued evaluation and treatment. - All imaging and lab work were reviewed and interpreted personally by myself, the ER physician - Evaluation and treatment of this problem were appropriate in the emergency setting Discharge Plan Discharge Patient Disposition: Xfer Psychiatric Hosp Clinical Impression: Suicidal ideation, Depression Condition: Stable Discharge Diet: Usual diet Discharge Activity: Resume usual activity Coding Level of Care Code ED Motion Picture Film Examiner for Heike Mckinley
[2023-12-22 12:29] LABS: Amphetamines Screen Urine Negative (Negative); Barbiturates Screen Urine Negative (Negative); Benzodiazepines Screen Urine Negative (Negative); Cocaine Screen Urine Negative (Negative); HCG Qualitative Urine. Negative (Negative); Opiate Screen Urine Negative (Negative); PCP Screen Urine Negative (Negative); THC Screen Urine Positive (Negative)
[2023-12-22 12:31] LABS: Bilirubin Urine Neg (Negative); Urine Appearance Clear (CLEAR); Urine Color Yellow (Yellow); Urobilinogen Urine Norm (Negative)
--- NOTE | 2023-12-22 12:31 | PC.PHAR ---
PT STATES NO MEDICATIONS IN 2 DAYS. STOPPED QUETIAPINE 100MG AND IS NOW TAKING ARIPIPRAZOLE 5 MG. PT STATES TAKES HER MEDICATIONS AT NIGHT.
[2023-12-22 12:49] LABS: Blood Urine Neg (Negative); Glucose Urine UA Norm (Normal); Ketones Urine Negative (Negative); Nitrate Urine Negative (Negative); Protein Urine Neg (Negative); pH Urine 6 (5-7)
[2023-12-22 12:50] LABS: Add Urine Culture? No; Bacteria Urine TRACE /hpf; Leukocyte Esterase Urine Negative (Negative); Mucus Urine 1+ /hpf; RBC Urine 0-4 /hpf (0-2); Squamous Epithelial Cell Urine 0-4 /hpf (0-5)
[2023-12-22 12:51] LABS: Basophils # 0.1 10^3/uL (0.0-0.1); Basophils % 0.6 %; Eosinophils # 0.2 10^3/uL (0.0-0.8); Eosinophils % 1.7 %; Hematocrit 43.9 % (36-47); Lymphocytes # 2.3 10^3/uL (1.5-6.5); Lymphocytes % 21.4 %; Mean Corpuscular HGB Conc 32.6 g/dL (30-55); Mean Corpuscular Hemoglobin 29.2 pg (27-33); Mean Corpuscular Volume 89.8 fl (85-98); Mean Platelet Volume 8.9 fL (7.4-10.4); Monocytes # 0.8 10^3/uL (0.2-0.9); Monocytes % 7.6 %; Neutrophils # 7.38 10^3/uL (1.8-8.0); Neutrophils % 68.1 %; Nucleated Red Blood Cells % 0 %; Platelet Count 364 10^3/cmm (157-399); Red Blood Count 4.89 10^6/uL (3.85-5.65); Red Cell Distribution Width 12.8 % (12.1-15.1); White Blood Count 10.82 10^3/uL (4.5-13.0)
[2023-12-22 13:31] LABS: Alanine Aminotransferase 28 U/L (0-33); Albumin Level 4.3 g/dL (3.5-5.2); Alkaline Phosphatase 72 U/L (35-105); Anion Gap 13.4 (5-19); Aspartate Amino Transferase 20 U/L (0-32); Blood Urea Nitrogen 12 mg/dL (6-20); Calcium 8.8 mg/dL (8.5-10.5); Carbon Dioxide 25 mmol/L (22-29); Chloride 103 mmol/L (98-107); Creatinine Clr Calc Pharmacy 154.9399; Glomerular Filtration Rate 127.5 mL/min (90-130); Glucose 97 mg/dL (65-115); Osmolality Calculated 284 mOsm/kg (285-295); Potassium 4.4 mmol/L (3.5-5.1); Sodium 137 mmol/L (136-145); Total Bilirubin 0.2 mg/dL (0.15-1.2); Total Protein 7.3 g/dL (6.6-8.7)
[2023-12-22 13:35] LABS: Acetaminophen < 5.0 ug/mL (10-30); Alcohol Level < 10 mg/dL (0-10); Salicylate < 0.3 mg/dL (3-10)
[2023-12-22 15:44] VITALS: BP 114/74; PULSE 74; RESP 16; TEMP 36.8; O2SAT 95
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
[2023-12-22 19:48] VITALS: BP 110/72; PULSE 80; RESP 16; TEMP 36.9; O2SAT 98
[2023-12-22] MEDS: ARIPiprazole 10 mg Tablet 5 MG PO (20:15)
[2023-12-22] MEDS: prazosin 1 mg Capsule 2 MG PO (20:15)
[2023-12-22] MEDS: sertraline 100 mg Tablet PO (20:15)
[2023-12-23 06:00] VITALS: BP 108/67; PULSE 76; RESP 16; TEMP 36.8; O2SAT 98
--- NOTE | 2023-12-23 07:27 | PC.NURSE ---
Per Dr. Baum, patient taken off sitter at 0715 in order to evaluate patient without a sitter present. Patient stated that she is fine with this. Patient verbalized understanding when told to let staff know if she has any thoughts of self harm.
[2023-12-23 08:57] VITALS: BP 100/69; PULSE 78; RESP 16; TEMP 36.6; O2SAT 97
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
[2023-12-23 12:29] VITALS: BP 111/72; PULSE 101; RESP 16; TEMP 36.7; O2SAT 96
[2023-12-23 14:00] VITALS: RESP 18
[2023-12-23] MEDS: acetaminophen 325 mg Tablet 650 MG PO (19:45)
[2023-12-23 20:13] VITALS: BP 112/62; PULSE 78; RESP 17; TEMP 36.5; O2SAT 94
[2023-12-23] MEDS: prazosin 1 mg Capsule 2 MG PO (20:19)
[2023-12-23] MEDS: sertraline 100 mg Tablet PO (20:19)
[2023-12-23] MEDS: ARIPiprazole 10 mg Tablet 5 MG PO (20:19)
[2023-12-24 06:00] VITALS: BP 106/66; PULSE 73; RESP 16; TEMP 36.6; O2SAT 98
--- NOTE | 2023-12-24 12:23 | P.NPUPN_ITS ---
Subjective NPU 2 Subjective: Patient presented today reporting that she feels that he is moving in the right direction. We discussed her plans of returning with grandma but then working with [employer] or hide get some kind of housing situation because she feels she needs to have some independence for things to improve. She reports she does plan to stay in the area. She denied any side effects analyses back on her medications steadily. We discussed the likelihood of discharge in the next 48 hours. Mental Status Exam 2 MSE Comments: Patient is an obese white female with pinkish hair in hospital scrubs with adequate grooming and eye contact. No abnormal movements except for mild psychomotor retardation. Cooperative with exam in mild distress. Speech was decreased rate and volume. Her mood was described as a little better. Her affect was congruent and flat. Thought process organized. Thought content: She denied current suicidal thoughts. She denied any homicidal ideation. She did not appear to be responding internal stimuli. There was no clear evidence of delusional thinking. Attention and concentration were intact and memory appeared reliable but none were formally tested. She was alert and oriented to person place time and situation. Her insight and judgment appeared limited. Her impulse control appeared limited. Vitals/I&O/Wt Last Vital Signs Temp 97.8 F 12/24/23 06:00 Pulse 73 12/24/23 06:00 Resp 16 12/24/23 06:00 BP 106/66 12/24/23 06:00 Pulse Ox 98 12/24/23 06:00 O2 Del Method Room Air 12/24/23 06:00 12/23/23 12/24/23 12/24/23 22:59 06:59 14:59 Intake Total 240 / 720 120 / 120 Balance 240 / 720 120 / 120 Data NPU 12/22/23 12:45 12/22/23 12:45 A&P Assessment and plan (1) Major depressive disorder, recurrent severe without psychotic features: (2) Post-traumatic stress disorder, chronic: (3) Suicidal ideation: (4) Borderline personality disorder: Plan 18-year-old white female with a history of borderline personality disorder, PTSD and major depressive disorder endorsing suicidal ideation with a plan after of ex boyfriend. The patient had reported desire to receive treatment at this time with no prior history of intensive psychotherapy but previous trials on antidepressants. 1. Encourage individual, group and milieu therapy. 2.Recommend sober living treatment at the highest level of care to which the patient is willing to commit. 3.continue every 15 minute checks for safety. 4. Continue current medication. Involuntary Hold Information 2 96 Hour Hold: 96 Hour Involuntary Admission: No Attestations NPU 2 Medical Necessity Statement*: Inpatient hospitalization is medically necessary and deemed to ?be ?the clinically appropriate intervention ?at this time.? We will monitor/initiate medications and make changes as indicated.? The patient?s likely length of stay 1-3 days. Coding Level of Care Code Acute Code for g Fwd Diagnoses Major depressive disorder, recurrent severe without psychotic features F33.2 Post-traumatic stress disorder, chronic F43.12 Suicidal ideation R45.851 Borderline personality disorder F60.3
[2023-12-24 13:32] VITALS: BP 118/69; PULSE 71; RESP 16; TEMP 36.7; O2SAT 96
[2023-12-24] MEDS: sertraline 100 mg Tablet PO (20:11)
[2023-12-24] MEDS: ARIPiprazole 10 mg Tablet 5 MG PO (20:11)
[2023-12-24] MEDS: prazosin 1 mg Capsule 2 MG PO (20:12)
[2023-12-24 20:35] VITALS: BP 106/73; PULSE 87; RESP 18; TEMP 36.2; O2SAT 97
[2023-12-25 06:00] VITALS: BP 105/71; PULSE 65; RESP 17; TEMP 36.4; O2SAT 96
--- NOTE | 2023-12-25 13:07 | P.NPUPN_ITS ---
Subjective NPU 2 Subjective: Patient presented today reporting that she is feeling significantly better. She reports that she has not gotten any specific follow-up appointments because when she went to [facility] they sent her to the hospital emergency department and did not give her any additional appointments. We discussed working with the social work team tomorrow to make sure that she has appropriate aftercare in place and that maybe they could help and pointing her in the direction of [place] [facility] or there is something to help kick start those aspects of her outpatient plans. Otherwise she reports her medications are working well and she denies any current side effects. Mental Status Exam 2 MSE Comments: Patient is an obese white female with pinkish hair in hospital scrubs with adequate grooming and eye contact. No abnormal movements except for mild psychomotor retardation. Cooperative with exam in no acute distress. Speech was decreased rate and volume. Her mood was described as a little better. Her affect was congruent and brighter. Thought process organized. Thought content: She denied current suicidal thoughts. She denied any homicidal ideation. She did not appear to be responding internal stimuli. There was no clear evidence of delusional thinking. Attention and concentration were intact and memory appeared reliable but none were formally tested. She was alert and oriented to person place time and situation. Her insight and judgment appeared limited. Her impulse control appeared limited. Vitals/I&O/Wt Last Vital Signs Temp 97.6 F 12/25/23 06:00 Pulse 65 12/25/23 06:00 Resp 17 12/25/23 06:00 BP 105/71 12/25/23 06:00 Pulse Ox 96 12/25/23 06:00 O2 Del Method Room Air 12/25/23 06:00 Weight last 48 hrs Weight 88.224 kg Data NPU 12/22/23 12:45 12/22/23 12:45 A&P Assessment and plan (1) Major depressive disorder, recurrent severe without psychotic features: (2) Post-traumatic stress disorder, chronic: (3) Suicidal ideation: (4) Borderline personality disorder: Plan 18-year-old white female with a history of borderline personality disorder, PTSD and major depressive disorder endorsing suicidal ideation with a plan after of ex boyfriend. The patient had reported desire to receive treatment at this time with no prior history of intensive psychotherapy but previous trials on antidepressants. 1. Encourage individual, group and milieu therapy. 2.Recommend sober living treatment at the highest level of care to which the patient is willing to commit. 3.continue every 15 minute checks for safety. 4. Continue current medication. 5. Plan for discharge tomorrow after appropriate aftercare put in place. Involuntary Hold Information 2 96 Hour Hold: 96 Hour Involuntary Admission: No Attestations NPU 2 Medical Necessity Statement*: Inpatient hospitalization is medically necessary and deemed to ?be ?the clinically appropriate intervention ?at this time.? We will monitor/initiate medications and make changes as indicated.? The patient?s likely length of stay 1 day. Coding Level of Care Code Acute Code for Chg Fwd Diagnoses Major depressive disorder, recurrent severe without psychotic features F33.2 Post-traumatic stress disorder, chronic F43.12 Suicidal ideation R45.851 Borderline personality disorder F60.3
[2023-12-25 14:00] VITALS: BP 110/71; PULSE 79; RESP 20; TEMP 36.6; O2SAT 98
[2023-12-25 20:33] VITALS: BP 120/77; PULSE 84; RESP 16; TEMP 36.8; O2SAT 97
[2023-12-25] MEDS: ARIPiprazole 10 mg Tablet 5 MG PO (20:48)
[2023-12-25] MEDS: prazosin 1 mg Capsule 2 MG PO (20:48)
[2023-12-25] MEDS: sertraline 100 mg Tablet PO (20:48)
[2023-12-25] MEDS: trazodone 50 mg Tablet PO (21:19)
[2023-12-26 06:00] VITALS: BP 110/72; PULSE 82; RESP 16; TEMP 36.6; O2SAT 97
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
[2023-12-26 08:49] VITALS: BP 110/72; PULSE 82; RESP 16; TEMP 36.6; O2SAT 97
== END 2023-12-26 10:49 | disposition home or self-care (01) | DRG 885 ==
LOC: ER 13:44 → NP 14:16
PROVIDERS: Admitting Provider Psychiatry & Neurology Psychiatry; Emergency Provider Emergency Medicine; Visit Provider Psychiatry & Neurology Psychiatry
DX: F33.2 Major depressive disorder, recurrent severe without psychotic features (principal); R45.851 Suicidal ideations; F43.12 Post-traumatic stress disorder, chronic; F60.3 Borderline personality disorder
CPT/HCPCS: 36415; 80053; 80306; 80307; 81001; 81025; 84443; 85025; 93005; 97150; 97165; 99285